=== PATIENT | female | born 1965 | race Caucasian/White ===

== ENCOUNTER 2019-10-18 20:52 | Emergency (ER) | payer BC ==
[~2019-10-18] VITALS: Ht 160 cm; Wt 56.7 kg
--- NOTE | 2019-10-18 21:45 | NUR ---
YUNG AT BEDSIDE FOR MSE.
--- NOTE | 2019-10-18 22:14 | NUR ---
Patient discharged to home in stable conditon. Written and verbal after care instructions given. Patient verbalizes understanding of instructions.PATIENT D/C HOME.V/S WNL . AMULATORY /STEADY OF GAIT ESCORTED ,WENT HOME WITH BELONGINGS AND D/C INSTRUCTION AND PRECRIPTION .
[2019-10-18 22:17] VITALS: BP 135/85
== END 2019-10-18 22:18 | disposition home or self-care (01) ==
LOC: ER 20:55
DX: M54.12 Radiculopathy, cervical region (principal); Z88.0 Allergy status to penicillin
CPT/HCPCS: A4663